=== PATIENT | female | born 2000 | race Caucasian/White ===

== ENCOUNTER 2022-09-16 12:58 | Emergency (ER) | payer OTHER, BC ==
[2022-09-16 13:02] VITALS: RESP 18; TEMP 98.4
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
[2022-09-16 13:52] LABS: Basophils % (A) 1 %; Eosinophils % (A) 0 %; HCT 40.8 % (34.0-46.0); HGB 14.2 gm/dL (11.4-16.0); Lymphocytes # (A) 2.5 k/uL (1.0-4.8); Lymphocytes % (A) 32 %; MCH 30.2 pg (25.0-35.0); MCHC 34.8 g/dL (31.0-37.0); MCV 86.9 fL (80.0-100.0); Mean Platelet Volume 8.2; Monocytes # (A) 0.3 k/uL (0-1.0); Monocytes % (A) 4 %; Neutrophils # (A) 4.7 k/uL (1.3-7.7); Neutrophils % (A) 62 %; Platelet Count 277 k/uL (150-450); RDW 12.7 % (11.5-15.5); WBC 7.6 k/uL (3.8-10.6)
[2022-09-16 13:58] LABS: ALT 19 U/L (4-34); AST 23 U/L (14-36); African American GFR (CKD) >90 (>60 ml/min/1.73 sqM); Albumin 4.3 g/dL (3.5-5.0); Alkaline Phosphatase 49 U/L (38-126); Anion Gap 10 mmol/L; Blood Urea Nitrogen 6 mg/dL (7-17); Calcium 8.6 mg/dL (8.4-10.2); Carbon Dioxide 23 mmol/L (22-30); Chloride 111 mmol/L (98-107); Glucose 95 mg/dL (74-99); Non-African American GFR(CKD) >90 (>60 ml/min/1.73 sqM); Sodium 144 mmol/L (137-145); Total Bilirubin 0.4 mg/dL (0.2-1.3)
[2022-09-16 13:59] LABS: HCG,Qualitative Serum Not Detected
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
[2022-09-16 14:07] LABS: Partial Thromboplastin Time 24.4 sec (22.0-30.0); Prothrombin Time 10.8 sec (9.0-12.0)
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
[2022-09-16 14:15] LABS: Alcohol 180 mg/dL
[2022-09-16 15:25] VITALS: BP 130/78; PULSE 87
== END 2022-09-16 15:30 | disposition home or self-care (01) ==
LOC: EC 12:58
DX: F10.129 Alcohol abuse with intoxication, unspecified (principal); V89.2XXA Person injured in unspecified motor-vehicle accident, traffic, initial encounter
CPT/HCPCS: 93005; 86900; 86901; 80053; 85025; 85610; 85730; 86850; 86870; 86880; 84703; 80320; 72125; 70450; 71260; 74177; 99285; Q9967; 36415